=== PATIENT | female | born 2000 | race Caucasian/White ===

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

== ENCOUNTER 2020-01-18 19:13 | Emergency (ER) | payer SELFPAY ==
[2020-01-18] MEDS ORDERED: methylPREDNISolone SODIUM SUC 125 MG/2 ML VIAL IV ONE (20:07)
[2020-01-18] MEDS ORDERED: SODIUM CHLORIDE 0.9% 1000ML 1,000 ML IVS ONE (20:07)
[2020-01-18] MEDS ORDERED: SUMAtriptan SUCCINATE INJ 6 MG/0.5 ML VIAL SUBCU ONE (20:08)
[2020-01-18] MEDS ORDERED: KETOROLAC TROMETHAMINE INJ 30 MG/ML VIAL IV ONE (20:08)
[2020-01-18] MEDS ORDERED: ACETAMINOPHEN-CAFF-BUTALBITAL 1 EA TAB PO PRN (20:09)
--- NOTE | 2020-01-18 20:13 | ED.PDOC ---
History of Present Illness - General Chief Complaint: Headache Stated Complaint: headache for 3 days Time Seen by Provider: 01/18/20 19:45 Source: patient Exam Limitations: no limitations - History of Present Illness Initial Comments: SOTOMAYOR X 3 D. COMES AND GOES. 01/23. BL TEMPORAL. V X 1 TODAY. NO NAUSEA AT PRESENT. HO MIGRAINES. THIS FEELS SIMILAR. H/0 MULTIPLE TENSION MIGRAINES PER WEEK, FOR WHICH SHE USUALLY TAKES TYLENOL OR IBUPROFEN. DRINKING WATER WELL, BUT DECR APPETITE (THOUGHT OF FOOD SOUNDS NAUSEOUS). Timing/Duration: waxing and waning Quality: severe, pressure Head Injury Location: temporal Recent Head Trauma: frequent headaches, chronic headaches Improving Factors: other - HOT PACK. Worsening Factors: other - BRIGHT LIGHT. Associated Symptoms: denies symptoms Allergies/Adverse Reactions: Allergies Bee Venom Allergy (Verified 04/27/17 15:30) Home Medications: Ambulatory Orders Vit W/ Ferrous Fumara [] 1 tab PO DAILY 04/07/17 Sumatriptan Succinate 25 mg PO ONCE PRN #9 tab 01/18/20 Review of Systems - Review of Systems Constitutional: Denies: chills, fever EENTM: Denies: blurred vision, ear pain, throat pain Respiratory: Denies: cough, short of breath Cardiology: States: no symptoms reported Gastrointestinal/Abdominal: Denies: nausea, vomiting Genitourinary: States: no symptoms reported Musculoskeletal: States: no symptoms reported. Denies: neck pain Skin: States: no symptoms reported Neurological: States: headache, other - POS PHOTOPHOBIA. . Denies: paresthesia, tingling, tremors, weakness Endocrine: States: no symptoms reported Hematologic/Lymphatic: States: no symptoms reported All other Systems: Reviewed and Negative Past Medical History (General) - Patient Medical History Hx Seizures: No Hx Stroke: No Hx Dementia: No Hx Asthma: No Hx of COPD: No Hx Cardiac Disorders: No Hx Congestive Heart Failure: No Hx Pacemaker: No Hx Hypertension: No Hx Thyroid Disease: No Hx Diabetes: No Hx Gastroesophageal Reflux: No Hx Renal Disease: No Hx Cancer: No Hx of HIV: No Hx Hepatitis C: No Hx MRSA: No Surgical History: no surgical history - Vaccination History Hx Tetanus, Diphtheria Vaccination: Yes Hx Influenza Vaccination: No Hx Pneumococcal Vaccination: No Immunizations Up to Date: Yes - Social History Hx Tobacco Use: No Hx Chewing Tobacco Use: No Hx Alcohol Use: No Hx Substance Use: No Hx Substance Use Treatment: No Hx Depression: No Feels Threatened In Home Enviroment: No Feels Threatened In a Relationship: No Hx Physical Abuse: No Hx Emotional Abuse: No Hx Suspected Abuse: No - Activities of Daily Living Hospice Agency (if applicable):: None - Female History Patient is a Female of Child Bearing Age (10 -59 yrs old): Yes Hx Last Menstrual Period: 07/18/16 Patient : No Expected Date of Delivery:: 05/21/17 Hx Gestational Age: 33 - Triage Comment ED Triage Comment: last migrane headache was 1 year ago, motrin usually helps. Pt took motrin today and has not helped Family Medical History - Family History Mother Maternal Family History: No Known Living Status: Still Living Father Family History: No Known Living Status: Still Living Physical Exam - Physical Exam General Appearance: Alert, No apparent distress, Well Groomed Eyes, Ears, Nose, Throat Exam: TMs normal, pharynx normal Neck: non-tender, full range of motion, supple Cardiovascular/Chest: regular rate, rhythm, no murmur Respiratory: lungs clear, normal breath sounds Gastrointestinal/Abdominal: normal bowel sounds, non tender, soft Back Exam: no CVA tenderness Extremity: normal range of motion, normal inspection 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 Coordination/Gait: normal finger to nose, normal gait, negative Romberg's sign Motor/Sensory: no motor deficit, no sensory deficit, no pronator drift Skin Exam: warm/dry, normal color Lymphatic: no adenopathy Progress - Progress Progress: 01/18/20 21:15 SOTOMAYOR RESOLVED BUT NOW NAUSEOUS. GIVING ZOFRAN. 01/18/20 21:48 nausea resolved. SAFE FOR DC TO HOME. - Results/Orders Results/Orders: 3D INTERMITTENT MIGRAINE SOTOMAYOR, BL TEMPORAL - GIVING COCKTAIL TO DUY THE MIGRAINE. NOT "THUNDERCLAP". NO CONCERN FOR MENINGITIS, SAH, OR OTHER SERIOUS INTRACRANIAL PATHOLOGY, AND MIGRAINE C/W HER HISTORICAL, THUS CT AND DIAGNOSTICS NOT INDICATED. Departure - Departure Clinical Impression: Nausea Migraine headache Qualifiers: Migraine type: without aura Status migrainosus presence: without status migrainosus Intractability: not intractable Qualified Code(s): G43.009 - Migraine without aura, not intractable, without status migrainosus Disposition: Discharge to Home or Self Care Condition: Good Departure Forms: ED Discharge - Pt. Copy, Patient Portal Self Enrollment Instructions: DI for Headache, Migraines (DC) Diet: resume usual diet Activity: increase activity as tolerated Referrals: Kate Oneill NP [Primary Care Provider] - 1-5 Days Prescriptions: Sumatriptan Succinate 25 mg PO ONCE PRN #9 tab PRN Reason: Headache/Migraine Pain Home Medications: Ambulatory Orders Vit W/ Ferrous Fumara [] 1 tab PO DAILY 04/07/17 Sumatriptan Succinate 25 mg PO ONCE PRN #9 tab 01/18/20 Additional Instructions: Since you have headaches so often, please see your regular doctor to talk about headache medication options.
[2020-01-18] MEDS ORDERED: ONDANSETRON INJ 4 MG/2 ML VIAL IV ONE (21:14)
[2020-01-18 22:08] VITALS: BP 108/76; TEMP 97.9; O2SAT 99
== END 2020-01-18 22:00 | disposition home or self-care (01) ==
LOC: ER 19:13
DX: G43.009 Migraine without aura, not intractable, without status migrainosus (principal)
CPT/HCPCS: J1885; J2405; J2930; J3030; J7030

== ENCOUNTER 2020-07-28 14:58 | Emergency (ER) | payer BC ==
[2020-07-28] MEDS ORDERED: ONDANSETRON INJ 4 MG/2 ML VIAL IV ONE (16:07)
[2020-07-28] MEDS ORDERED: SODIUM CHLORIDE 0.9% (FLUSH) 10 ML SYG IV PRN (16:07)
[2020-07-28] MEDS ORDERED: MORPHINE SULFATE INJ 10 MG/ML VIAL ONE (16:58)
[2020-07-28] MEDS ORDERED: MORPHINE SULFATE INJ 10 MG/ML VIAL IV ONE (16:59)
--- NOTE | 2020-07-28 17:10 | ED.PDOC ---
History of Present Illness - General Chief Complaint: Abdominal Pain Time Seen by Provider: 07/28/20 17:01 Additional Information: Patient is a 20-year-old female who presents to the ED with chief complaint of left sided abdominal pain. Patient indicates she woke feeling fine this morning but pain began around 8:00 and has persisted. Patient considers the pain to be moderate and sharp, presently it is 6/10 and is diffusely in the left side of her abdomen greatest in the central and lower quadrants.. The pain radiates to her back. Positive nausea and vomiting. Patient indicates her last menstrual period was July 12 and that she is due today for her period. Patient says she always has painless and regular menses and her pain today is not consistent with PMS symptoms. Patient denies dysuria or hematuria. She denies history of abdominal complaints or surgeries. Patient is otherwise asymptomatic. Review of Systems - Review of Systems Constitutional: States: no symptoms reported. Denies: chills, fever EENTM: States: no symptoms reported Respiratory: States: no symptoms reported. Denies: cough, short of breath Cardiology: States: no symptoms reported. Denies: chest pain, palpitations Gastrointestinal/Abdominal: States: see HPI, abdominal pain, nausea, vomiting. Denies: diarrhea Genitourinary: States: no symptoms reported. Denies: dysuria, frequency, hematuria, pain Musculoskeletal: States: no symptoms reported. Denies: see HPI Neurological: States: no symptoms reported All other Systems: Reviewed and Negative Past Medical History (General) - Patient Medical History Hx Seizures: No Hx Stroke: No Hx Dementia: No Hx Asthma: No Hx of COPD: No Hx Cardiac Disorders: No Hx Congestive Heart Failure: No Hx Pacemaker: No Hx Hypertension: No Hx Thyroid Disease: No Hx Diabetes: No Hx Gastroesophageal Reflux: No Hx Renal Disease: No Hx Cancer: No Hx of HIV: No Hx Hepatitis C: No Hx MRSA: No Surgical History: no surgical history - Vaccination History Hx Tetanus, Diphtheria Vaccination: Yes Hx Influenza Vaccination: No Hx Pneumococcal Vaccination: No - Social History Hx Tobacco Use: No Hx Chewing Tobacco Use: No Hx Alcohol Use: No Hx Substance Use: No Hx Substance Use Treatment: No Hx Depression: No Hx Physical Abuse: No Hx Emotional Abuse: No Hx Suspected Abuse: No - Female History Patient is a Female of Child Bearing Age (10 -59 yrs old): No Hx Last Menstrual Period: 07/18/16 Patient : No Expected Date of Delivery:: 05/21/17 Hx Gestational Age: 33 Family Medical History - Family History Mother Maternal Family History: No Known Living Status: Still Living Father Family History: No Known Living Status: Still Living Physical Exam - Physical Exam General Appearance: Alert, Comfortable, No apparent distress, Well Developed, Well Nourished Eyes, Ears, Nose, Throat Exam: normal ENT inspection Neck: full range of motion, supple, normal inspection Respiratory: chest non-tender, lungs clear, normal breath sounds, no respiratory distress, no accessory muscle use Cardiovascular/Chest: normal peripheral pulses, regular rate, rhythm, no edema, no gallop, no JVD, no murmur Peripheral Pulses: No deficit Gastrointestinal/Abdominal: normal bowel sounds, non tender, soft Extremity: normal range of motion, non-tender, normal inspection Neurologic: no motor/sensory deficits, alert, normal mood/affect, oriented x 3 Skin Exam: normal color Progress - Progress Progress: 07/28/20 17:19 Differential diagnosis includes but is not limited to diverticulosis colitis ectopic renal colic 07/28/20 19:02 Patient seen and reexamined and she is feeling much better at this time she is essentially pain-free. Patient's UA shows no evidence of infection but does show RBCs consistent with ureteral stone. Patient's chemistry panel including creatinine is normal but her WBC is slightly elevated. This is nonspecific and patient has no focal infectious signs and I suspect this is a stress response. Patient CT shows a small left-sided ureteral stone with hydronephrosis, patient should be easily able to pass the stone on her own. Strict RT ED precautions discussed with patient to include uncontrolled pain, vomiting, fever, and I will discharge with Flomax and analgesics and patient will follow up with urology as needed. Vital signs stable, patient is NAD and looks clinically well and I believe is safe for discharge with outpatient follow-up. Follow-up instructions, discharge instructions and return to ED precautions discussed with patient. Patient voices understanding and willingness to comply with instructions. All laboratory and/or radiographic results have been discussed with the patient, and all questions answered. Patient is happy with plan. - EKG/XRAY/CT CT Ordered: No Departure - Departure Clinical Impression: Ureteral stone with hydronephrosis Time of Disposition: 19:04 Disposition: Discharge to Home or Self Care Condition: Good Departure Forms: ED Discharge - Pt. Copy, Patient Portal Self Enrollment Instructions: DI for Abdominal Pain-Adult, Renal Colic Referrals: [facility] [Physicians] - 1-5 Days Prescriptions: Codeine Sulfate 30 mg PO RTQ4 PRN 5 Days #20 tab PRN Reason: Pain Tamsulosin HCl [Flomax] 0.4 mg PO QAM #12 cap Home Medications: Ambulatory Orders Vit W/ Ferrous Fumara [] 1 tab PO DAILY 04/07/17 Sumatriptan Succinate 25 mg PO ONCE PRN #9 tab 01/18/20 Codeine Sulfate 30 mg PO RTQ4 PRN 5 Days #20 tab 07/28/20 Tamsulosin HCl [Flomax] 0.4 mg PO QAM #12 cap 07/28/20
[2020-07-28 18:07] VITALS: O2SAT 99
--- NOTE | 2020-07-28 18:37 | CT ---
EXAM DESCRIPTION: Abdomen/Pelvis w/Contrast 07/28/2020 6:30 PM [facility] CLINICAL HISTORY: 20 years, Female, left sided pain COMPARISON: None PROCEDURE: Contrast-enhanced images of the abdomen and pelvis were performed utilizing 2 mm slice thickness at 2 mm interval reconstruction from the lung bases to the ischial tuberosities after the administration of IV contrast. No dosing amount was provided for DrRashard ruelas. In addition multiplanar reformats in the coronal and sagittal plane were obtained and reviewed. An individualized dose optimization technique, Automated Exposure Control, was utilized for the performed procedure. FINDINGS: The lung bases demonstrate to be clear. The left kidney demonstrate slight decreased uptake of contrast with the presence of left hydronephrosis and left hydroureter extending down to the level of the close possibility to the left UVJ (approximately 1 cm) disease were there is a probable 1.8 x 2.[address] series #2 image 71/[address] series 602 image 57/113. There is tiny calculus within the lower pole left kidney measuring [address] series #2 image 35/87. The right kidney demonstrate normal uptake of contrast media with no evidence for significant calculus and/or hydronephrosis. The liver, gallbladder, pancreas, spleen and adrenal glands demonstrate to be unremarkable, no focal lesions are noted. Grossly the unopacified stomach, small bowel and large bowel demonstrate to be within normal limits. Fecal residue and underdistention within the large bowel limits the evaluation. There is no evidence for bowel dilatation and/or free air.. The appendix is normal. The urinary bladder demonstrate to be unremarkable. The uterus is normal. There is a right ovarian cyst measuring 1.[address] series #2 image 69/87. The aorta demonstrate to be normal. There is no retroperitoneal lymphadenopathy. There is no evidence for ascites and/or significant abnormal fluid collections. The rest of the soft tissue and bony structures are within normal limits. IMPRESSION: LEFT HYDRONEPHROSIS AND LEFT HYDROURETER EXTENDING DOWN TO CLOSE POSSIBILITY TO THE LEFT UVJ WHERE THERE IS A 1.8 X 2.9 MM OBSTRUCTIVE URETERAL CALCULUS. RIGHT OVARIAN CYST, NO FOLLOW-UP IS RECOMMENDED. Electronically signed by: Gregg Mcmillan MD 07/28/2020 6:35 PM [facility]
[2020-07-28] MEDS ORDERED: TAMSULOSIN 0.4 MG CAP PO ONE (18:58)
[2020-07-28 20:07] VITALS: BP 116/81; TEMP 97.9
== END 2020-07-28 20:07 | disposition home or self-care (01) ==
LOC: ER 14:58
DX: N13.2 Hydronephrosis with renal and ureteral calculous obstruction (principal)
CPT/HCPCS: 36415; 74177; 80048; 80076; 81001; 84703; 85025; A4216; J2270; J2405